=== PATIENT | male | born 1980 | race Caucasian/White ===

== ENCOUNTER 2021-02-19 11:19 | Emergency (ER) | payer MEDICARE ==
[~2021-02-19] VITALS: Ht 182.9 cm; Wt 100.0 kg
[~2021-02-19 11:19] MED LIST: NO HOME MEDS
[2021-02-19 12:01] LABS: HEMOGLOBIN 17.1 g/dl (14.0-17.9); PLATELET COUNT 200 X10'3 (140-440); RED CELL DISTRIBUTION WIDTH 13.9 % (11.5-14.5)
[2021-02-19 12:03] LABS: BASOPHILS # (AUTO) 0.1 X10'3 (0-0.2); BASOPHILS % (AUTO) 0.5 % (0-1); EOSINOPHILS # (AUTO) 0.2 X10'3 (0-0.9); EOSINOPHILS % (AUTO) 1.6 % (0-6); HEMATOCRIT 49.6 % (42.0-52.0); LYMPHOCYTES # (AUTO) 3.9 X10'3 (1.1-4.8); LYMPHOCYTES % (AUTO) 28.4 % (21-51); MEAN CORPUSCULAR HEMOGLOBIN 32.3 PG (27.0-31.0); MEAN CORPUSCULAR HGB CONC 34.4 g/dL (33.0-36.5); MEAN PLATELET VOLUME 9.9 FL (7.4-10.4); MONOCYTES # (AUTO) 1.2 X10'3 (0-0.9); MONOCYTES % (AUTO) 8.6 % (2-12); NEUTROPHILS # (AUTO) 8.4 X10'3 (1.8-7.7); NEUTROPHILS % (AUTO) 60.9 % (42-75); RED BLOOD COUNT 5.28 X10'6 (4.70-6.10); WHITE BLOOD COUNT 13.7 X10'3 (4.5-11.0)
[2021-02-19 12:17] LABS: ALANINE AMINOTRANSFERASE 101 U/L (12-78); ALBUMIN 3.6 G/DL (3.4-5.0); ALBUMIN/GLOBULIN RATIO 0.8 (1.1-1.5); ALKALINE PHOSPHATASE 121 IU/L (46-116); ANION GAP 12 (8-16); ASPARTATE AMINO TRANSFERASE 54 U/L (10-37); BILIRUBIN,TOTAL 0.6 MG/DL (0.1-1.0); BLOOD UREA NITROGEN 7 MG/DL (7-18); BUN/CREATININE RATIO 7.6 (5.4-32.0); CALCIUM 8.4 MG/DL (8.5-10.1); CHLORIDE 104 MMOL/L (99-107); CREATININE 0.92 MG/DL (0.60-1.10); ETHANOL < 0.010 GM/DL (0.0-0.010); GLUCOSE 114 MG/DL (70-104); POTASSIUM 3.9 MMOL/L (3.5-5.1); SODIUM 142 MMOL/L (135-145); TOTAL CARBON DIOXIDE 25.9 MMOL/L (24-32); TOTAL PROTEIN 8.3 G/DL (6.4-8.2); eGFR 90 ML/MIN
[2021-02-19 12:42] LABS: CLARITY,URINE CLEAR (Clear); COLOR,URINE AMBER (Yellow); GLUCOSE, URINE NEGATIVE (Neg); KETONES,URINE 15 mg/dl (Neg); LEUKOCYTE ESTERASE ,URINE NEGATIVE (Neg); NITRITES, URINE NEGATIVE (Neg); OCCULT BLOOD,URINE NEGATIVE (Neg); PROTEIN,URINE TRACE mg/dl (Neg)
[2021-02-19 12:48] LABS: UA COLLECTION TYPE VOIDED
[2021-02-19 12:49] LABS: BACTERIA,URINE NONE SEEN /HPF (Neg); MUCUS STRANDS MODERATE /LPF (Neg); RBC,URINE NONE SEEN /HPF (0-2); SQUAMOUS EPITHELIAL CELL,UR NONE SEEN /LPF (FEW); WBC,URINE 0-4 /HPF (0-4)
[2021-02-19 12:57] LABS: URINE AMPHETAMINE SCREEN NEGATIVE (Neg); URINE BARBITUATE SCREEN NEGATIVE (Neg); URINE BENZODIAZEPINES SCREEN NEGATIVE (Neg); URINE CANNABINOID SCREEN NEGATIVE (Neg); URINE COCAINE SCREEN POSITIVE (Neg); URINE METHADONE SCREEN NEGATIVE (Neg); URINE OPIATE SCREEN NEGATIVE (Neg); URINE PHENCYCLIDINE SCREEN NEGATIVE (Neg)
[2021-02-19] MEDS ORDERED: DIVA-74 PO (13:15)
[2021-02-19] MEDS ORDERED: FLUO20CA39 PO (13:15)
[2021-02-19] MEDS ORDERED: HYDR-3686 PO (13:15)
[2021-02-19] MEDS ORDERED: OLAN5TAB3 PO (13:15)
[2021-02-19] MEDS ORDERED: NALT50TA PO (13:15)
[2021-02-19] MEDS ORDERED: LISI20TA28 PO (13:15)
--- NOTE | 2021-02-19 13:15 | NUR ---
Patient resting comfortably on ewa, sister at bedside. He reports no new concerns, I will continue to monitor.
[2021-02-19] MEDS: divalproex 250mg tablet, delayed-release PO SCH (20:56)
[2021-02-19] MEDS ORDERED: OLANZAPINE 5 MG TABLET PO SCH (21:00)
--- NOTE | 2021-02-19 23:06 | NUR ---
Confirmed with CB that patient could not be transferred to them until seen and evaluated by [facility] and placed on [id number].
[2021-02-20] MEDS ORDERED: lisinopril 20mg tablet PO SCH (08:00)
[2021-02-20] MEDS ORDERED: FLUoxetine 20mg capsule PO SCH (08:00)
[2021-02-20] MEDS ORDERED: naltrexone 50mg tablet PO SCH (08:00)
[2021-02-20] MEDS ORDERED: hydrOXYzine 25 MG tablet PO SCH (08:00)
[2021-02-20] MEDS: divalproex 250mg tablet, delayed-release PO SCH (08:59)
[2021-02-20 09:29] VITALS: BP 138/99
== END 2021-02-20 11:12 | disposition home or self-care (01) ==
LOC: ER 11:22
DX: R45.851 Suicidal ideations (principal); Z20.822 Contact with and (suspected) exposure to COVID-19; R45.850 Homicidal ideations; F15.129 Other stimulant abuse with intoxication, unspecified; I10 Essential (primary) hypertension; J44.9 Chronic obstructive pulmonary disease, unspecified; F12.90 Cannabis use, unspecified, uncomplicated; F41.9 Anxiety disorder, unspecified; F29 Unspecified psychosis not due to a substance or known physiological condition
CPT/HCPCS: 36415; 80053; 80305; 80320; 81001; 85025; 87635; 99285; C9803; Q0177